=== PATIENT | female | born 1995 | race Two or more races ===

== ENCOUNTER 2022-03-02 00:06 | Emergency (ER) | payer MEDICAID, OTHER ==
[~2022-03-02] VITALS: Ht 175.3 cm; Wt 90.9 kg
[2022-03-02] MEDS ORDERED: HYDROmorphone HCL 2 MG/ML VL/or syr IV ONE ×2 (00:30→06:00)
[2022-03-02] MEDS ORDERED: ONDANSETRON HCL 4 MG/2 ML VIAL IV ONE ×2 (00:30→06:00)
[2022-03-02] MEDS ORDERED: SODIUM CHLORIDE 0.9% 500 ML IV ONE (00:30)
[2022-03-02 01:15] LABS: Basophils # (auto) 0.1 10 ^3/uL (0-0.2); Basophils % (auto) 0.6 % (0.0-2.0); Eosinophils # (auto) 0 10 ^3/uL (0-0.8); Eosinophils % (auto) 0.2 % (0.0-7.0); Hemoglobin 15.1 g/dL (12.2-16.2); Lymphocytes # (auto) 1.5 10 ^3/uL (0.4-5.4); Mean Corpuscular Hemoglobin 28.1 pg (28.0-32.0); Mean Corpuscular Hgb Conc. 32.8 g/dL (32.0-36.0); Mean Corpuscular Volume 85.7 fL (80.0-100.0); Monocytes # (auto) 0.9 10 ^3/uL (0-1.3); Neutrophils % (auto) 81.2 % (37.0-80.0); Nucleated Red Blood Cells % 0.1 %; Red Blood Cells 5.37 10^6/uL (4.0-5.20); Red Cell Distribution Width 13.7 % (11.8-14.3); White Blood Cell 13.5 10^3/uL (4.4-10.8)
[2022-03-02 01:35] LABS: Albumin 4.2 g/dL (3.4-5.0); Calcium 9.3 mg/dL (8.5-10.1); Potassium 3.1 mmol/L (3.5-5.1)
[2022-03-02 01:45] LABS: Total Protein 7.5 g/dL (6.4-8.2)
[2022-03-02] MEDS ORDERED: metroNIDAZOLE 500 MG TAB PO ONE (05:45)
[2022-03-02] MEDS ORDERED: CIPROFLOXACIN HCL 500 MG TAB PO ONE (05:45)
[2022-03-02 06:38] VITALS: BP 105/70
[2022-03-02] MEDS ORDERED: ONDA-144 PO (06:52)
[2022-03-02] MEDS ORDERED: METR500T PO (06:52)
[2022-03-02] MEDS ORDERED: PERCOT PO (06:52)
== END 2022-03-02 07:18 | disposition home or self-care (01) ==
LOC: ER 00:06 → EDBD 00:06 → ER 07:18
DX: K29.70 Gastritis, unspecified, without bleeding (principal); Z90.710 Acquired absence of both cervix and uterus
CPT/HCPCS: 36415; 71045; 74176; 80053; 83690; 85025; 96361; 96374; 96375; 96376; 99285; J1170; J2405; J7040